=== PATIENT | female | born 1990 | race Caucasian/White ===

== ENCOUNTER 2016-03-31 14:47 | Inpatient (IN) | payer BC ==
[2016-03-31] MEDS ORDERED: fentaNYL 100 MCG/2 ML INJ ONE ×2 (15:02→15:45)
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
[2016-03-31] MEDS ORDERED: IOPAMIDOL (ISOVUE-300) 50 ML VIAL IV ONE (15:20)
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
[2016-03-31] MEDS ORDERED: LORazepam 2 MG/ML INJ ONE (16:08)
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
[2016-03-31] MEDS ORDERED: NALOXONE HCL 0.4 MG/ML INJ IVP PRN (16:44)
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
[2016-03-31] MEDS ORDERED: ONDANSETRON 4 MG/2 ML VIAL ONE (17:20)
--- NOTE | 2016-03-31 17:29 | DX ---
Portable AP chest. March 31, 2016at 1718 History: Follow-up left pneumothorax. Comparison examination: Chest CT 1 hour earlier Findings: Small left apical pneumothorax is not visualized on chest x-ray. No pneumomediastinum ident ified. Heart size and mediastinal contours appear normal. Comminuted displaced left scapular fracture again noted. There are multiple left-sided rib fractures including posterior left second, third, and fourth rib fractures and nondisplaced lateral fifth and s ixth rib fractures. Impression: 1. Nonvisualization of left pneumothorax. 2. Comminuted displaced left scapular fracture. 3. Multiple left-sided rib fractures.
[2016-03-31 18:43] LABS: PHENCYCLIDINE URINE BCH < 6 ng/ml (NEGATIVE)
[2016-03-31 18:52] LABS: PHENCYCLIDINE URINE BCH NEGATIVE (NEGATIVE)
[2016-03-31 18:55] LABS: TETRAHYDROCANNABINOL URINE > 800 ng/mL (NEGATIVE)
[2016-03-31 19:03] LABS: TETRAHYDROCANNABINOL URINE > 800 ng/mL (NEGATIVE)
[2016-03-31] MEDS: LR 1,000 ML IV SCH (19:04)
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
[2016-03-31] MEDS: ONDANSETRON 4 MG/2 ML VIAL IVP PRN (19:33)
[2016-03-31] MEDS: FAMOTIDINE 20 MG/NACL 50 ML IV SCH (20:36)
[2016-03-31] MEDS: LORazepam 2 MG/ML INJ IVP PRN (20:58)
[2016-04-01] MEDS: LORazepam 2 MG/ML INJ IVP PRN ×4 (00:13→23:30)
[2016-04-01] MEDS: LR 1,000 ML IV SCH (03:05)
[2016-04-01] MEDS: ONDANSETRON 4 MG/2 ML VIAL IVP PRN ×2 (03:09→10:10)
--- NOTE | 2016-04-01 07:29 | SOAPPROG ---
SOAP Progress Note Assessment/Plan: Assessment: left scapula fx left distal radius fx right thumb fx left ribs fxs pneumothorax Plan: currently I am unable to have any surgical discussion with patient. She is anxious and emotional and unable to discuss any intervention coherently. I have recommended surgical intervention for her left scapula and left wrist. I will speak with the trauma surgeon to discuss possible operative timing. Given her head injury, pending c-spine clearance, multiple rib fxs, and pneumothorax she will require careful planning prior to operative intervention. If she cannot tolerate positive pressure ventilation then she cannot undergo anesthsia here currently. Given her pneumothorax, I will speak with the trauma surgeon as to when she would be safe for airline travel. I have spoken with patient's boyfriend and relayed these features. I have asked him to discuss with her whether she wishes to undergo surgery here versus in [place]. Patients father is arriving today as well. Will follow 04/01/16 07:21 Subjective: upset scared pain in same areas as yesterday Objective: Vital Signs Temp Pulse Resp BP Pulse Ox 36.4 C 78 13 101/62 94 03/31/16 19:00 04/01/16 06:00 04/01/16 06:00 04/01/16 06:00 04/01/16 06:00 03/31/16 04/01/16 04/02/16 05:59 05:59 05:59 Intake Total 2021 Output Total 401 Balance 1621 bilateral wrist/thumb splints intact intact digital flex/ext c collar in place left shoulder swollen, skin intact axillary nerve intact limited mobility to left upper ext stephanie lower ext neg homans ICD10 Worksheet Patient Problems: Problems Problem Status Diagnosed Scapula fracture Acute - ICD10 Problem Qualifiers (1) Scapula fracture
[2016-04-01] MEDS: FAMOTIDINE 20 MG/NACL 50 ML IV SCH ×2 (10:10→19:55)
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
[2016-04-01] MEDS: Norethindrone-E.Estradiol-Iron [Microgestin Fe 1-20 Tablet] 1 EACH PO SCH (14:12)
[2016-04-01] MEDS: ENOXAPARIN 40 MG/0.4 ML SYR SC SCH (14:14)
[2016-04-01] MEDS: LIDOCAINE 5% 1 EA PATCH TD SCH (14:16)
--- NOTE | 2016-04-01 15:12 | DX ---
Portable chest April 01, 2016, 1452 hours HISTORY: Assess pneumothorax. FINDINGS: Compare to previous chest radiographs x2 from yesterday. No pneumothorax and no pleural eff usion. Lungs are clear. Heart size is normal. Fractures of posterior aspects of left third and left f ourth ribs are visible. A comminuted fracture of the left scapula is partially obscured by telemetry lead. IMPRESSION: Multiple fractures on the left. No pneumothorax.
[2016-04-01] MEDS: PATCH REMOVAL 1 EA PATCH TD SCH (20:02)
[2016-04-02] MEDS: LORazepam 2 MG/ML INJ IVP PRN (02:08)
[2016-04-02] MEDS ORDERED: morphINE PCA 30 MG/30 ML PCA IV PRN (08:53)
[2016-04-02] MEDS ORDERED: NALOXONE HCL 0.4 MG/ML INJ IVP PRN (08:53)
[2016-04-02] MEDS: LIDOCAINE 5% 1 EA PATCH TD SCH (09:03)
[2016-04-02] MEDS: FAMOTIDINE 20 MG/NACL 50 ML IV SCH ×2 (09:04→23:15)
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
[2016-04-02] MEDS: ENOXAPARIN 40 MG/0.4 ML SYR SC SCH (10:22)
[2016-04-02] MEDS: ONDANSETRON 4 MG/2 ML VIAL IVP PRN ×2 (13:11→22:56)
[2016-04-02] MEDS: Norethindrone-E.Estradiol-Iron [Microgestin Fe 1-20 Tablet] 1 EACH PO SCH (14:00)
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
[2016-04-02] MEDS ORDERED: BUPIVACAINE/EPI 0.5% 30 ML SDV ONE (15:24)
[2016-04-02] MEDS ORDERED: BUPIVACAINE 0.5% 30 ML SDV ONE (15:24)
[2016-04-02] MEDS ORDERED: MIDAZOLAM 2 MG/2 ML VIAL ONE (16:03)
[2016-04-02] MEDS ORDERED: DEXMEDETOMIDINE HCL 200 MCG/2 ML VIAL IV ONE (16:27)
[2016-04-02] MEDS ORDERED: ceFAZolin 2 GM/DEXTROSE 100 ML IV ONE (16:30)
[2016-04-02] MEDS ORDERED: HYDROmorphONE/DILAUDID 2 MG/ML SYR ONE (16:33)
[2016-04-02] MEDS ORDERED: PROPOFOL 200 MG/20 ML VIAL ONE (16:33)
[2016-04-02] MEDS ORDERED: ROCURONIUM 50 MG/5 ML VIAL ONE (16:38)
[2016-04-02] MEDS ORDERED: LIDOCAINE 2% 5 ML SDV ONE (16:38)
[2016-04-02] MEDS ORDERED: ONDANSETRON 4 MG/2 ML VIAL ONE ×3 (16:38→21:28)
[2016-04-02] MEDS ORDERED: DEXAMETHASONE 4 MG/ML VIAL ONE ×3 (16:38→20:37)
--- NOTE | 2016-04-02 22:40 | DX ---
Fluoroscopy: 51.4 seconds, 5.5 mGy, of total fluoroscopic time was utilized for ORIF of the left wrist and left sc apula. Four digital radiographs are available demonstrating postoperative changes of ORIF of both th e wrist and scapula.
[2016-04-02] MEDS: LR 1,000 ML IV SCH (23:14)
[2016-04-02] MEDS: ceFAZolin 2 GM/DEXTROSE 100 ML IV SCH (23:15)
[2016-04-03] MEDS: LORazepam 2 MG/ML INJ IVP PRN ×3 (00:35→09:31)
[2016-04-03] MEDS: ceFAZolin 2 GM/DEXTROSE 100 ML IV SCH (05:45)
[2016-04-03] MEDS: PATCH REMOVAL 1 EA PATCH TD SCH ×2 (06:28→20:09)
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
--- NOTE | 2016-04-03 08:45 | TRAUMAPN ---
Assessment/Plan: Left wrist Fx splinted R thumb (spica splint) L scapula s/p ORIF last evening L rib fx 1-8 L Ptx (apical) supportive care Pain control is the main issue at hand On Morphine salesperson corsets c/o 10/10 pain Tolerating po Advance diet OOB with assist Bowel protocol Change to salesperson corsets with basal rate Add NSAID if okay with orthopedic surgery Ketamine/muscle relaxant and tylenol are all adjunctive medications that may help in pain management Objective: Vital Signs Temp Pulse Resp BP Pulse Ox 37.0 C 81 16 124/71 H 94 04/03/16 06:00 04/03/16 06:00 04/03/16 06:00 04/03/16 06:00 04/03/16 06:00 04/02/16 04/03/16 04/04/16 05:59 05:59 05:59 Intake Total 868 457 Output Total 1400 Balance 868 -943 AA&O crying due to L scapula pain local reaction to tape - mild pruritic (opiate) pupils equal EOMI RRR CTA Dressings/splint c/d/i 2+ peripheral pulses equal bilat - C-Spine Clearance Cervical Spine Cleared: Yes Provider who Cleared Cervical Spine: Jennifer
[2016-04-03] MEDS ORDERED: NALOXONE HCL 0.4 MG/ML INJ IVP PRN ×2 (08:47→08:51)
[2016-04-03] MEDS: LIDOCAINE 5% 1 EA PATCH TD SCH (09:03)
[2016-04-03] MEDS: ENOXAPARIN 40 MG/0.4 ML SYR SC SCH (09:10)
[2016-04-03] MEDS: FAMOTIDINE 20 MG/NACL 50 ML IV SCH ×2 (09:13→20:09)
[2016-04-03] MEDS: LR 1,000 ML IV SCH ×3 (09:16→20:13)
[2016-04-03] MEDS ORDERED: KETOROLAC 30 MG/1 ML SDV IVP ONE (09:31)
[2016-04-03] MEDS: Norethindrone-E.Estradiol-Iron [Microgestin Fe 1-20 Tablet] 1 EACH PO SCH (09:36)
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
[2016-04-03] MEDS: morphINE PCA 30 MG/30 ML PCA IV PRN (12:20)
[2016-04-03] MEDS: KETOROLAC 30 MG/1 ML SDV IVP PRN (18:16)
[2016-04-03] MEDS ORDERED: POLYETHYLENE GLYCOL 3350 17 GM PKT PO PRN (19:39)
[2016-04-03] MEDS ORDERED: MAGNESIUM HYDROXIDE 30 ML UDCUP PO PRN (19:39)
[2016-04-03] MEDS ORDERED: LACTULOSE 20 GM/30 ML UDCUP PO PRN (19:39)
[2016-04-03] MEDS ORDERED: BISACODYL 10 MG SUPP PR PRN (19:39)
[2016-04-03] MEDS: SENNOSIDES/DOCUSATE SODIUM TAB PO SCH (20:11)
[2016-04-03] MEDS: ONDANSETRON 4 MG/2 ML VIAL IVP PRN (20:32)
[2016-04-03] MEDS: FAMOTIDINE 20 MG TAB PO SCH (21:23)
[2016-04-04] MEDS: KETOROLAC 30 MG/1 ML SDV IVP PRN ×2 (04:44→12:18)
[2016-04-04] MEDS: LORazepam 2 MG/ML INJ IVP PRN ×4 (04:45→20:40)
[2016-04-04] MEDS: morphINE PCA 30 MG/30 ML PCA IV PRN (06:09)
[2016-04-04] MEDS: FAMOTIDINE 20 MG TAB PO SCH ×2 (09:04→19:36)
[2016-04-04] MEDS: ENOXAPARIN 40 MG/0.4 ML SYR SC SCH (09:04)
[2016-04-04] MEDS: SENNOSIDES/DOCUSATE SODIUM TAB PO SCH ×2 (09:04→19:35)
[2016-04-04] MEDS: LR 1,000 ML IV SCH (09:06)
[2016-04-04] MEDS: Norethindrone-E.Estradiol-Iron [Microgestin Fe 1-20 Tablet] 1 EACH PO SCH (09:07)
[2016-04-04] MEDS: LIDOCAINE 5% 1 EA PATCH TD SCH ×2 (09:11→09:14)
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
[2016-04-04] MEDS: HYDROmorphONE/DILAUDID 2 MG TAB PO PRN ×5 (14:36→23:39)
[2016-04-04] MEDS: KETOROLAC 15 MG/1 ML SDV IVP SCH ×2 (18:04→23:40)
[2016-04-04] MEDS: PATCH REMOVAL 1 EA PATCH TD SCH (20:40)
[2016-04-05] MEDS: HYDROmorphONE/DILAUDID 2 MG TAB PO PRN ×3 (04:18→13:36)
[2016-04-05] MEDS: LORazepam 2 MG/ML INJ IVP PRN (04:27)
[2016-04-05] MEDS: KETOROLAC 15 MG/1 ML SDV IVP SCH ×4 (06:34→23:15)
[2016-04-05] MEDS: ENOXAPARIN 40 MG/0.4 ML SYR SC SCH (10:13)
[2016-04-05] MEDS: LIDOCAINE 5% 1 EA PATCH TD SCH ×2 (10:13→15:35)
[2016-04-05] MEDS: FAMOTIDINE 20 MG TAB PO SCH ×2 (10:14→19:55)
[2016-04-05] MEDS: SENNOSIDES/DOCUSATE SODIUM TAB PO SCH ×2 (10:15→21:12)
--- NOTE | 2016-04-05 10:24 | SOAPPROG ---
SOAP Progress Note Assessment/Plan: Assessment: left scapula fx left distal radius fx right thumb fx left ribs fxs pneumothorax Plan: improving continue iv pain control pendulum rom only to shoulder keep splints clean, dry and intact Will follow 04/01/16 07:21 04/03/16 11:51 04/05/16 10:22 Subjective: improving pain doesnt understand what is going on Objective: Vital Signs Temp Pulse Resp BP Pulse Ox 37.1 C 71 16 95/53 L 93 04/05/16 07:54 04/05/16 07:54 04/05/16 07:54 04/05/16 07:54 04/05/16 07:54 04/04/16 04/05/16 04/06/16 05:59 05:59 05:59 Intake Total 2255.5 113.4 Output Total 950 Balance 1305.5 113.4 splints clean, dry and intact intact digital flex and ext of all digits warm and pink sensation intact axillary , r,, u, m dressing intact over posterior shoulder minimal active rom no calf swelling or ttp\ ICD10 Worksheet Patient Problems: Problems Problem Status Diagnosed Scapula fracture Acute - ICD10 Problem Qualifiers (1) Scapula fracture
[2016-04-05] MEDS: Norethindrone-E.Estradiol-Iron [Microgestin Fe 1-20 Tablet] 1 EACH PO SCH (11:54)
[2016-04-05] MEDS ORDERED: oxyCODONE IR 5 MG TAB PO PRN (14:37)
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
[2016-04-05] MEDS: oxyCODONE IR 5 MG TAB PO PRN ×3 (15:30→23:16)
[2016-04-05] MEDS: PATCH REMOVAL 1 EA PATCH TD SCH (23:22)
[2016-04-06] MEDS: oxyCODONE IR 5 MG TAB PO PRN ×7 (03:27→22:26)
[2016-04-06] MEDS: LORazepam 2 MG/ML INJ IVP PRN (03:27)
[2016-04-06] MEDS: KETOROLAC 15 MG/1 ML SDV IVP SCH (05:24)
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
[2016-04-06] MEDS: ONDANSETRON 4 MG/2 ML VIAL IVP PRN (09:40)
[2016-04-06] MEDS: FAMOTIDINE 20 MG TAB PO SCH ×2 (09:44→20:09)
[2016-04-06] MEDS: ENOXAPARIN 40 MG/0.4 ML SYR SC SCH (09:45)
[2016-04-06] MEDS: LIDOCAINE 5% 1 EA PATCH TD SCH (09:48)
[2016-04-06] MEDS: SENNOSIDES/DOCUSATE SODIUM TAB PO SCH ×2 (09:53→20:08)
[2016-04-06] MEDS: Norethindrone-E.Estradiol-Iron [Microgestin Fe 1-20 Tablet] 1 EACH PO SCH (09:54)
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
[2016-04-06] MEDS: IBUPROFEN 600 MG TAB PO SCH ×3 (12:42→20:09)
[2016-04-06] MEDS: PATCH REMOVAL 1 EA PATCH TD SCH (21:05)
[2016-04-07] MEDS: ONDANSETRON 4 MG/2 ML VIAL IVP PRN ×2 (00:58→05:51)
[2016-04-07] MEDS: oxyCODONE IR 5 MG TAB PO PRN ×4 (00:58→05:55)
[2016-04-07 04:46] VITALS: TEMP 98.9
[2016-04-07] MEDS: IBUPROFEN 600 MG TAB PO SCH ×2 (05:55→11:06)
[2016-04-07] MEDS ORDERED: oxyCODONE IR 5 MG TAB PO PRN (09:26)
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
--- NOTE | 2016-04-07 10:29 | SOAPPROG ---
Downtime Inpatient MD Late Entry SOAP Note: I discussed Melissa's progress with Dr. Cheung and he is comfortable with her discharging today. Apparently the family was told that she would be receiving [facility] services at discharge/she has been cleared by OT + PT and her nurse Teresa is not aware of that recommendation by the caseworker. I gave Melissa's mother my office contact information and will see her next week before she returns home with her mother to [place].
[2016-04-07] MEDS: LIDOCAINE 5% 1 EA PATCH TD SCH (11:04)
[2016-04-07] MEDS: SENNOSIDES/DOCUSATE SODIUM TAB PO SCH (11:05)
[2016-04-07] MEDS: ENOXAPARIN 40 MG/0.4 ML SYR SC SCH (11:06)
[2016-04-07] MEDS: FAMOTIDINE 20 MG TAB PO SCH (11:06)
[2016-04-07 12:48] VITALS: BP 90/53; PULSE 70; RESP 14; O2SAT 94
[2016-04-07] MEDS: Norethindrone-E.Estradiol-Iron [Microgestin Fe 1-20 Tablet] 1 EACH PO SCH (13:08)
--- NOTE | 2016-04-14 02:12 | GPROG ---
[f rep st] PROGRESS NOTE POSTANESTHESIA NOTE. The patient was delivered to the PACU in good condition. She was moderately drowsy, but reported onl y mild pain without nausea. There were no evident anesthetic complications. /[id number]/MODL
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
== END 2016-04-07 15:36 | disposition home or self-care (01) | DRG 511 ==
LOC: F2N 18:44 → F3N 04-03 15:17
PROVIDERS: ADMIT Surgery; ATTEND Surgery
PROC: 0PSJ04Z Reposition Left Radius with Internal Fixation Device, Open Approach (ICD-10-PCS; principal; 2016-04-02 17:00)
PROC: 0PS604Z Reposition Left Scapula with Internal Fixation Device, Open Approach (ICD-10-PCS; principal; 2016-04-02 17:00)
DX: S42.102A Fracture of unspecified part of scapula, left shoulder, initial encounter for closed fracture (principal); S52.502A Unspecified fracture of the lower end of left radius, initial encounter for closed fracture; S22.42XA Multiple fractures of ribs, left side, initial encounter for closed fracture; S22.058A Other fracture of T5-T6 vertebra, initial encounter for closed fracture; S27.0XXA Traumatic pneumothorax, initial encounter; S06.0X1A Concussion with loss of consciousness of 30 minutes or less, initial encounter; S62.511A Displaced fracture of proximal phalanx of right thumb, initial encounter for closed fracture; R40.2410 Glasgow coma scale score 13-15, unspecified time; F12.90 Cannabis use, unspecified, uncomplicated; V86.52XA Driver of snowmobile injured in nontraffic accident, initial encounter; Y93.89 Activity, other specified; Y92.830 Public park as the place of occurrence of the external cause
CPT/HCPCS: 80307; 82947-QW; 92507-GN; 92523-GN; 97110-GO; 97116-GP; 97161-GP; 97162-GP; 97167-GO; 97530-GO; 97530-GP; 97535-GO; C1713; C1769; G0480; J0690; J1100; J1170; J1650; J1885; J2250; J2270; J2405; J2704; J3010; L0172; L3908; Q9967

== ENCOUNTER 2016-04-09 09:53 | Emergency (ER) | payer BC ==
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
[2016-04-09] MEDS ORDERED: ONDANSETRON 4 MG/2 ML VIAL IVP ONE (10:14)
[2016-04-09] MEDS ORDERED: KETOROLAC 30 MG/1 ML SDV IVP ONE (10:14)
[2016-04-09] MEDS ORDERED: NS 1,000 ML IV ONE ×2 (10:15)
[2016-04-09] MEDS ORDERED: HYDROmorphONE/DILAUDID 1 MG/ML SYR IVP ONE (10:15)
[2016-04-09 11:01] LABS: % IMMATURE GRANULYOCYTES 0.3 % (0.0-1.1); ABSOLUTE IMMATURE GRANULOCYTES 0.03 10^3/uL (0.00-0.10); ADD DIFF? NO; ADD MORPH? NO; ADD SCAN? NO; ATYPICAL LYMPHOCYTE FLAG 10 (0-99); FRAGMENT RBC FLAG 0 (0-99); HEMATOCRIT 32.2 % (38.0-47.0); HEMOGLOBIN 10.7 g/dL (12.6-16.3); LEFT SHIFT FLG 0 (0-99); LIPEMIA HEMOLYSIS FLAG 80 (0-99); MEAN CELL HEMOGLOBIN 27.2 pg (27.9-34.1); MEAN CELL HEMOGLOBIN CONCENTR. 33.2 g/dL (32.4-36.7); MEAN CELL VOLUME 81.7 fL (81.5-99.8); MEAN PLATELET VOLUME 10.6 fL (8.7-11.7); PLATELET CLUMPS FLAG 0 (0-99); PLATELET COUNT 439 10^3/uL (150-400); RED BLOOD CELL COUNT 3.94 10^6/uL (4.18-5.33); RED CELL DISTRIBUTION WIDTH 12.5 % (11.5-15.2)
[2016-04-09 11:21] LABS: ALANINE AMINOTRANSFERASE 71 IU/L (9-52); ALKALINE PHOSPHATASE 70 IU/L (38-126); ANION GAP 12 mEq/L (8-16); ASPARTATE AMINOTRANSFERASE 58 IU/L (14-46); BILIRUBIN,TOTAL 0.6 mg/dL (0.1-1.4); BILIRUBIN-CONJUGATED 0.2 mg/dL (0.0-0.5); BILIRUBIN-UNCONJUGATED 0.4 mg/dL (0.0-1.1); CALCIUM 9.4 mg/dL (8.5-10.4); CARBON DIOXIDE 26 mEq/l (22-31); CHLORIDE 100 mEq/L (97-110); CREATININE 0.6 mg/dL (0.6-1.0); GLOMERULAR FILTRATION RATE > 60; GLUCOSE 121 mg/dL (70-100); POTASSIUM 4.8 mEq/L (3.5-5.2); SODIUM 138 mEq/L (134-144); TOTAL PROTEIN 7.3 g/dL (6.3-8.2)
[2016-04-09 12:19] VITALS: TEMP 98.8
[2016-04-09] MEDS ORDERED: oxyCODONE IR 5 MG TAB ONE (12:58)
[2016-04-09] MEDS ORDERED: oxyCODONE IR 5 MG TAB PO ONE (13:03)
[2016-04-09] MEDS ORDERED: ONDANSETRON 4MG PREPACK#2 BTL TAKEHOME ONE (13:51)
[2016-04-09 14:11] VITALS: BP 106/70; PULSE 55; RESP 18; O2SAT 97
== END 2016-04-09 14:27 | disposition home or self-care (01) ==
DX: R11.2 Nausea with vomiting, unspecified (principal); R19.7 Diarrhea, unspecified
CPT/HCPCS: 96374; J1170; J1885; J2405

== ENCOUNTER 2016-04-10 06:02 | Observation (INO) | payer BC ==
[2016-04-10] MEDS ORDERED: ONDANSETRON 4 MG/2 ML VIAL IVP ONE (06:08)
[2016-04-10] MEDS ORDERED: NS 1,000 ML IV ONE ×2 (06:33)
[2016-04-10] MEDS ORDERED: KETOROLAC 15 MG/1 ML SDV IVP ONE (06:35)
[2016-04-10] MEDS ORDERED: LORazepam 2 MG/ML INJ IVP ONE ×2 (06:36→07:28)
[2016-04-10] MEDS ORDERED: METOCLOPRAMIDE 10 MG/2 ML VIAL ONE (06:41)
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
[2016-04-10 07:27] LABS: % IMMATURE GRANULYOCYTES 0.3 % (0.0-1.1); ABSOLUTE IMMATURE GRANULOCYTES 0.03 10^3/uL (0.00-0.10); ADD DIFF? NO; ADD MORPH? NO; ADD SCAN? NO; ATYPICAL LYMPHOCYTE FLAG 0 (0-99); FRAGMENT RBC FLAG 0 (0-99); HEMATOCRIT 30.5 % (38.0-47.0); HEMOGLOBIN 10.3 g/dL (12.6-16.3); LEFT SHIFT FLG 0 (0-99); LIPEMIA HEMOLYSIS FLAG 90 (0-99); MEAN CELL HEMOGLOBIN 27.8 pg (27.9-34.1); MEAN CELL HEMOGLOBIN CONCENTR. 33.8 g/dL (32.4-36.7); MEAN CELL VOLUME 82.4 fL (81.5-99.8); MEAN PLATELET VOLUME 10.2 fL (8.7-11.7); PLATELET CLUMPS FLAG 0 (0-99); PLATELET COUNT 433 10^3/uL (150-400); RED CELL DISTRIBUTION WIDTH 12.5 % (11.5-15.2)
[2016-04-10 07:31] LABS: ALANINE AMINOTRANSFERASE 64 IU/L (9-52); ALBUMIN 3.5 g/dL (3.5-5.0); ALKALINE PHOSPHATASE 82 IU/L (38-126); ANION GAP 11 mEq/L (8-16); ASPARTATE AMINOTRANSFERASE 37 IU/L (14-46); BILIRUBIN,TOTAL 0.6 mg/dL (0.1-1.4); CARBON DIOXIDE 26 mEq/l (22-31); CHLORIDE 102 mEq/L (97-110); CREATININE 0.6 mg/dL (0.6-1.0); GLOMERULAR FILTRATION RATE > 60; GLUCOSE 126 mg/dL (70-100); POTASSIUM 4.1 mEq/L (3.5-5.2); SODIUM 139 mEq/L (134-144); TOTAL PROTEIN 6.5 g/dL (6.3-8.2)
[2016-04-10] MEDS ORDERED: IOPAMIDOL (ISOVUE-300) 100 ML BTL IV ONE (08:06)
[2016-04-10 09:09] LABS: COLOR PALE YELLOW; LEUKOCYTE ESTERASE,URINE NEGATIVE (NEGATIVE); NITRITE,URINE NEGATIVE (NEGATIVE)
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
[2016-04-10] MEDS ORDERED: HYDROmorphONE/DILAUDID 1 MG/ML SYR ONE (10:53)
[2016-04-10] MEDS ORDERED: HYDROmorphONE/DILAUDID 1 MG/ML SYR IVP ONE (11:01)
[2016-04-10] MEDS ORDERED: ACETAMINOPHEN 325 MG TAB PO PRN (12:29)
[2016-04-10] MEDS ORDERED: oxyCODONE IR 5 MG TAB PO PRN (12:29)
[2016-04-10] MEDS ORDERED: PROMETHAZINE HCL 25 MG/ML INJ IVP PRN (12:29)
[2016-04-10] MEDS ORDERED: LORazepam 0.5 MG TAB PO PRN (12:29)
[2016-04-10] MEDS ORDERED: HYDROmorphONE/DILAUDID 1 MG/ML SYR IVP PRN (12:29)
[2016-04-10] MEDS ORDERED: ONDANSETRON DISINTEGRATING 4 MG TAB PO PRN (12:29)
[2016-04-10] MEDS ORDERED: ZOLPIDEM TARTRATE 5 MG TAB PO PRN (12:29)
[2016-04-10] MEDS ORDERED: ONDANSETRON 4 MG/2 ML VIAL IVP PRN (12:29)
[2016-04-10] MEDS ORDERED: NS 1,000 ML IV SCH (12:30)
[2016-04-10] MEDS ORDERED: FAMOTIDINE 20 MG TAB PO PRN (12:31)
[2016-04-10] MEDS ORDERED: SENNOSIDES/DOCUSATE SODIUM TAB PO PRN (12:31)
[2016-04-10] MEDS: ONDANSETRON 4 MG/2 ML VIAL IVP PRN ×2 (12:44→16:30)
[2016-04-10] MEDS: NS 1,000 ML IV SCH ×2 (12:44→20:00)
[2016-04-10] MEDS: LORazepam 2 MG/ML INJ IVP PRN ×2 (13:41→22:04)
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
[2016-04-10] MEDS: IBUPROFEN 600 MG TAB PO SCH ×2 (16:18→19:59)
[2016-04-10 19:26] VITALS: RESP 16
--- NOTE | 2016-04-10 19:45 | US ---
Ultrasound Abdomen Limited History: Abdominal pain. Nausea and vomiting. Elevated lipase. Comparison: CT dated April 10, 2016. Findings: Liver measures 16.6 cm and is normal in echogenicity with no focal lesion. Gallbladder demo nstrates a small amount of sludge. Gallbladder wall thickness is 3 mm, minimally enlarged. No evidenc e of hyperemia of the gallbladder wall. Minimal pericholecystic fluid is present. No evidence for int rahepatic or extrahepatic biliary ductal dilatation. The common bile duct measures 2 mm. Pancreas is unremarkable. Abdominal aorta is normal in diameter. Right kidney measures 9.8 cm in length and demon strates no evidence for mass or hydronephrosis. Impression: Mild sludge in the gallbladder with no evidence for gallstones. Gallbladder wall is borde rline enlarged, but not hyperemic. The minimal free fluid at the gallbladder can be seen with IV hydr ation as suggested by the prior CT findings.
[2016-04-11 03:07] VITALS: TEMP 98.4; O2SAT 97
[2016-04-11] MEDS: IBUPROFEN 600 MG TAB PO SCH ×2 (05:47→13:46)
[2016-04-11] MEDS ORDERED: POLYETHYLENE GLYCOL 3350 17 GM PKT PO SCH (09:00)
[2016-04-11] MEDS ORDERED: Norethindrone-E.Estradiol-Iron [Microgestin Fe 1-20 Tablet] 1 EACH PO SCH (09:00)
[2016-04-11 09:56] LABS: % IMMATURE GRANULYOCYTES 0.6 % (0.0-1.1); ABSOLUTE IMMATURE GRANULOCYTES 0.05 10^3/uL (0.00-0.10); ADD DIFF? NO; ADD MORPH? NO; ADD SCAN? NO; ATYPICAL LYMPHOCYTE FLAG 10 (0-99); FRAGMENT RBC FLAG 0 (0-99); HEMATOCRIT 31.3 % (38.0-47.0); HEMOGLOBIN 10.6 g/dL (12.6-16.3); LEFT SHIFT FLG 0 (0-99); LIPEMIA HEMOLYSIS FLAG 90 (0-99); MEAN CELL HEMOGLOBIN 27.6 pg (27.9-34.1); MEAN CELL HEMOGLOBIN CONCENTR. 33.9 g/dL (32.4-36.7); MEAN CELL VOLUME 81.5 fL (81.5-99.8); MEAN PLATELET VOLUME 9.9 fL (8.7-11.7); PLATELET CLUMPS FLAG 0 (0-99); PLATELET COUNT 412 10^3/uL (150-400); RED BLOOD CELL COUNT 3.84 10^6/uL (4.18-5.33); RED CELL DISTRIBUTION WIDTH 12.4 % (11.5-15.2)
[2016-04-11 10:29] LABS: ALANINE AMINOTRANSFERASE 46 IU/L (9-52); ALBUMIN 3.3 g/dL (3.5-5.0); ALKALINE PHOSPHATASE 78 IU/L (38-126); ANION GAP 6 mEq/L (8-16); ASPARTATE AMINOTRANSFERASE 23 IU/L (14-46); BILIRUBIN,TOTAL 0.6 mg/dL (0.1-1.4); BILIRUBIN-CONJUGATED 0.4 mg/dL (0.0-0.5); BILIRUBIN-UNCONJUGATED 0.2 mg/dL (0.0-1.1); CALCIUM 8.9 mg/dL (8.5-10.4); CARBON DIOXIDE 28 mEq/l (22-31); CHLORIDE 104 mEq/L (97-110); CREATININE 0.6 mg/dL (0.6-1.0); GLOMERULAR FILTRATION RATE > 60; GLUCOSE 85 mg/dL (70-100); SODIUM 138 mEq/L (134-144); TOTAL PROTEIN 6.1 g/dL (6.3-8.2)
[2016-04-11] MEDS: LIDOCAINE 5% 1 EA PATCH TD SCH ×2 (11:16→17:13)
[2016-04-11 11:37] VITALS: BP 102/58; PULSE 48
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
== END 2016-04-11 17:50 | disposition home or self-care (01) ==
LOC: F3E 12:38
PROVIDERS: ADMIT Internal Medicine; ATTEND Internal Medicine
DX: K85.90 Acute pancreatitis without necrosis or infection, unspecified (principal); R11.2 Nausea with vomiting, unspecified; R10.84 Generalized abdominal pain; S06.0X0D Concussion without loss of consciousness, subsequent encounter; S42.102D Fracture of unspecified part of scapula, left shoulder, subsequent encounter for fracture with routine healing; S52.502D Unspecified fracture of the lower end of left radius, subsequent encounter for closed fracture with routine healing; S22.49XD Multiple fractures of ribs, unspecified side, subsequent encounter for fracture with routine healing; V86.5 Driver of special all-terrain or other off-road motor vehicle injured in nontraffic accident; D64.9 Anemia, unspecified; Z87.898 Personal history of other specified conditions
CPT/HCPCS: 74177; 76705; G0378; 96374; J1170; J1885; J2405; J2765; Q9967

== ENCOUNTER 2016-04-13 07:08 | Emergency (ER) | payer BC ==
[2016-04-13 07:12] VITALS: RESP 16; O2SAT 97
[2016-04-13] MEDS ORDERED: METOCLOPRAMIDE 10 MG/2 ML VIAL IVP ONE (07:27)
[2016-04-13] MEDS ORDERED: FAMOTIDINE 20 MG/NACL 50 ML IV ONE (07:27)
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
[2016-04-13 07:42] LABS: % IMMATURE GRANULYOCYTES 0.7 % (0.0-1.1); ADD DIFF? NO; ADD MORPH? NO; ADD SCAN? NO; ATYPICAL LYMPHOCYTE FLAG 0 (0-99); FRAGMENT RBC FLAG 0 (0-99); HEMATOCRIT 36.2 % (38.0-47.0); HEMOGLOBIN 12.4 g/dL (12.6-16.3); LEFT SHIFT FLG 0 (0-99); LIPEMIA HEMOLYSIS FLAG 90 (0-99); MEAN CELL HEMOGLOBIN 27.7 pg (27.9-34.1); MEAN CELL HEMOGLOBIN CONCENTR. 34.3 g/dL (32.4-36.7); MEAN CELL VOLUME 80.8 fL (81.5-99.8); MEAN PLATELET VOLUME 9.7 fL (8.7-11.7); PLATELET CLUMPS FLAG 10 (0-99); PLATELET COUNT 546 10^3/uL (150-400); RED BLOOD CELL COUNT 4.48 10^6/uL (4.18-5.33); RED CELL DISTRIBUTION WIDTH 12.9 % (11.5-15.2)
[2016-04-13 07:58] LABS: ALANINE AMINOTRANSFERASE 45 IU/L (9-52); ALBUMIN 3.9 g/dL (3.5-5.0); ALKALINE PHOSPHATASE 119 IU/L (38-126); ANION GAP 10 mEq/L (8-16); ASPARTATE AMINOTRANSFERASE 24 IU/L (14-46); BILIRUBIN,TOTAL 0.6 mg/dL (0.1-1.4); BILIRUBIN-CONJUGATED 0.2 mg/dL (0.0-0.5); BILIRUBIN-UNCONJUGATED 0.4 mg/dL (0.0-1.1); CALCIUM 9.2 mg/dL (8.5-10.4); CARBON DIOXIDE 29 mEq/l (22-31); CHLORIDE 100 mEq/L (97-110); CREATININE 0.6 mg/dL (0.6-1.0); GLOMERULAR FILTRATION RATE > 60; GLUCOSE 132 mg/dL (70-100); POTASSIUM 4.2 mEq/L (3.5-5.2); SODIUM 139 mEq/L (134-144); TOTAL PROTEIN 7.2 g/dL (6.3-8.2)
[2016-04-13] MEDS ORDERED: LORazepam 2 MG/ML INJ IVP ONE (08:25)
[2016-04-13] MEDS ORDERED: ONDANSETRON 4 MG/2 ML VIAL IVP ONE (08:25)
[2016-04-13] MEDS ORDERED: NS 1,000 ML IV ONE (08:25)
[2016-04-13 10:11] VITALS: BP 108/68; PULSE 75; TEMP 99.9
== END 2016-04-13 10:11 | disposition home or self-care (01) ==
DX: R11.10 Vomiting, unspecified (principal); E86.0 Dehydration
CPT/HCPCS: 96374; J2405; J2765